=== PATIENT | female | born 1975 | race African-American/Black ===

== ENCOUNTER 2025-02-08 12:56 | Emergency (ER) | payer SELFPAY ==
[2025-02-08 13:01] VITALS: BP 108/71
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
[2025-02-08] MEDS: TORADOL 15 MG IM (15:27)
[2025-02-08 15:28] VITALS: BP 122/77
== END 2025-02-08 15:52 | disposition home or self-care (01) ==
LOC: EMR 12:56
PROVIDERS: EMERGENCY PHYSICIAN Emergency Medicine; FAMILY PHYSICIAN Family Medicine
DX: S06.0X0A Concussion without loss of consciousness, initial encounter (principal); V43.52XA Car driver injured in collision with other type car in traffic accident, initial encounter; Y92.410 Unspecified street and highway as the place of occurrence of the external cause; K21.9 Gastro-esophageal reflux disease without esophagitis
CPT/HCPCS: 99284; 96372; 70450